=== PATIENT | male | born 1935 | race Caucasian/White ===

== ENCOUNTER 2017-05-03 19:28 | Emergency (ER) | payer OTHER ==
[2017-05-03 19:37] VITALS: BP 161/81; PULSE 89; TEMP 98.6; BMI 20.5
--- NOTE | 2017-05-03 19:38 | PDOC ---
Rapid Medical Evaluation Time Seen by Provider: 05/03/17 19:32 Medical Evaluation: Allergies Allergy/AdvReac Type Severity Reaction Status Date / Time No Known Drug Allergies Allergy Verified 06/27/15 08:43 05/03/17 19:33 I have performed a brief in-person evaluation of this patient. The patient presents with a chief complaint of: penile bleeding s/p "study" by urologist MD Alec Reynolds, "losing a lot of blood," pain with urination Pertinent physical exam findings: hematuria I have ordered the following: UA, UCx The patient will proceed to the ED for further evaluation. Discharge Disposition - Diagnosis Hematuria - Referrals - Patient Instructions - Post Discharge Activity
[2017-05-03 20:01] LABS: PH,URINE 7.5 (5.0-8.0); URINE APPEARANCE CLEAR; URINE BILIRUBIN NEGATIVE (NEGATIVE); URINE BLOOD 3+ (NEGATIVE); URINE COLOR DK. RED; URINE GLUCOSE (UA) NEGATIVE (NEGATIVE); URINE KETONE TRACE (NEGATIVE); URINE LEUK ESTERASE TRACE (NEGATIVE); URINE NITRITE POSITIVE (NEGATIVE); URINE PROTEIN 3+ (NEGATIVE)
[2017-05-03 20:17] LABS: URINE WBC 27 /hpf (3-5)
[2017-05-03 20:23] LABS: BASO % 0.6 % (0-2.0); EOS % 0.4 % (0-4.5); MCH 30.2 pg (25.7-33.7); MCHC 33.8 g/dl (32.0-35.9); MEAN CELL VOLUME 89.1 fl (80-96); MEAN PLT VOLUME 8.6 fl (7.5-11.1); NEUT % 80.4 % (42.8-82.8); PLATELET COUNT 163 K/MM3 (134-434)
--- NOTE | 2017-05-03 20:25 | PDOC ---
History of Present Illness - General Chief Complaint: Hematuria Stated Complaint: PCP SENT Time Seen by Provider: 05/03/17 19:32 History Source: Patient, Family Exam Limitations: Language Barrier (Grandson was translating) - History of Present Illness Initial Comments: 05/03/17 20:18 The patient is a 81M with a PMH of BPH s/p prostatectomy in [place] in 2005 who presents to the ED with complaints of hematuria. The patient's grandson was translating. The patient had a urologic procedure today which involved going inside the urethra. The patient states that he experienced a lot of pain when the physician entered the urethra. Since his procedure, he has had painful urination once (which has become more mild), hematuria, and gross blood from his meatus after finishing urinating. He has no other complaints. Denies lightheadedness, fever, chills, palpitations, CP, SOB. Past History - Past Medical History Allergies/Adverse Reactions: Allergies Allergy/AdvReac Type Severity Reaction Status Date / Time No Known Drug Allergies Allergy Verified 06/27/15 08:43 Home Medications: Ambulatory Orders NK [No Known Home Medication] 05/03/17 COPD: No Diabetes: No - Surgical History Appendectomy: Yes - Suicide/Smoking/Psychosocial Hx Smoking History: Never smoked Have you smoked in the past 12 months: No Hx Alcohol Use: No Drug/Substance Use Hx: No Substance Use Type: None Review of Systems - Review of Systems Able to Perform ROS?: Yes Comments:: 05/03/17 20:43 GENERAL/CONSTITUTIONAL: No fever or chills. No weakness. HEAD, EYES, EARS, NOSE AND THROAT: No change in vision. No ear pain or discharge. No sore throat. GASTROINTESTINAL: No nausea, vomiting, diarrhea, constipation, or abdominal pain. GENITOURINARY: Positive for hematuria. No dysuria, frequency, hematuria, or change in urination. CARDIOVASCULAR: No chest pain, palpitations, or lightheadedness. RESPIRATORY: No cough, wheezing, shortness of breath, or hemoptysis. MUSCULOSKELETAL: No joint or muscle swelling or pain. No neck or back pain. SKIN: No rash or lesions. NEUROLOGIC: No headache, numbness, tingling, weakness, loss of consciousness, or change in strength/sensation. ENDOCRINE: No increased thirst. No abnormal weight change. HEMATOLOGIC/LYMPHATIC: No anemia, easy bleeding, or history of blood clots. ALLERGIC/IMMUNOLOGIC: No hives or skin allergy. Is the patient limited Malaysian proficient: Yes *Physical Exam - Vital Signs Last Vital Signs Temp Pulse Resp BP Pulse Ox 98.6 F 89 18 161/81 100 05/03/17 19:35 05/03/17 19:35 05/03/17 19:35 05/03/17 19:35 05/03/17 19:35 - Physical Exam Comments: 05/03/17 21:16 GENERAL: Well developed, well nourished. Awake and alert. No acute distress. HEENT: Normocephalic, atraumatic. Hearing grossly normal. Moist mucous membranes. NECK: Supple. Full ROM. No JVD. CARDIOVASCULAR: Regular rate and rhythm. No murmurs, rubs, or gallops. Distal pulses are 2+ and symmetric. PULMONARY: No evidence of respiratory distress. Lungs clear to auscultation bilaterally. No wheezing, rales or rhonchi. ABDOMINAL: Soft. Non-tender. Non-distended. No rebound or guarding. No organomegaly. Normoactive bowel sounds. GENITOURINARY: No CVA tenderness bilaterally. There is dry blood at the urethral meatus. No tenderness to palpation over penile shaft. MUSCULOSKELETAL: Normal range of motion at all joints. No bony deformities or tenderness. EXTREMITIES: No cyanosis. No clubbing. No edema. No calf tenderness. SKIN: Warm and dry. Normal capillary refill. No rashes. No jaundice. NEUROLOGICAL: Alert, awake, appropriate. Cranial nerves 2-12 intact. Normal speech. PSYCHIATRIC: Cooperative. Good eye contact. Appropriate mood and affect. ED Treatment Course - LABORATORY CBC & Chemistry Diagram: 05/03/17 20:15 05/03/17 20:15 - ADDITIONAL ORDERS Additional order review: Laboratory Results 05/03/17 19:42 Urine Color Dk. red Urine Appearance Clear Urine pH 7.5 Ur Specific Allison 1.020 Urine Protein 3+ H Urine Glucose (UA) Negative Urine Ketones Trace H Urine Blood 3+ H Urine Nitrite Positive Urine Bilirubin Negative Urine Urobilinogen 1.0 Medical Decision Making - Medical Decision Making 05/03/17 20:39 The patient is a 81M who presents after having a cystoscope with biopsy and is now experiencing hematuria. I spoke with Dr. Alec Reynolds who states that his partner most likely did the procedure and is willing to either see the patient in the hospital if the patient is admitted or have the patient follow up in clinic. Labs pending. Will reassess when labs return. Will give PO hydration. 05/03/17 21:17 All labs WNL, Hgb 14.1. The patient and family agree to see Dr. Reynolds tomorrow at 9 am in clinic. The patient urinated in the ER and states that the hematuria is decreased and there is much less pain. Ready to d/c. *DC/Admit/Observation/Transfer Diagnosis at time of Disposition: Hematuria Qualifiers: Hematuria type: gross Qualified Code(s): R31.0 - Gross hematuria - Discharge Dispostion Disposition: HOME Condition at time of disposition: Stable Admit: No - Referrals Referrals: Evgeny Reynolds MD [Primary Care Provider] - - Patient Instructions Printed Discharge Instructions: DI for Hematuria Additional Instructions: Please return to the ER if symptoms persist, worsen, or new symptoms arise. Please follow up with your primary care physician in 2-3 days. Please return to the ER if you have any signs or symptoms of chest pain, shortness of breath, uncontrollable fever, chills, nausea, vomiting, numbness, tingling, or weakness in any part of your body, changes in vision, or slurred speech. Please take your medications as prescribed. Por favor regrese a la bhumika de emergencias si los sntomas persisten, empeoran o surgen nuevos sntomas. Por favor, darshan un seguimiento con bloom mdico de atencin primaria en 2-3 batista. Por favor regrese a la bhumika de emergencia si tiene signos o sntomas de dolor en el pecho, dificultad para respirar, fiebre incontrolable, escalofros, n useas, vmitos, entumecimiento, hormigueo o debilidad en cualquier parte de bloom cuerpo, cambios en la visin o dificultad para hablar. Por favor tome jefferson medicamentos segn lo recetado. Print Language: PERUVIAN - Post Discharge Activity
[2017-05-03 20:26] LABS: URINE RBC 1227 /hpf (0-3)
[2017-05-03 20:36] LABS: INR 1.15 (0.82-1.09)
[2017-05-03 20:48] LABS: ALBUMIN 4.1 g/dl (3.4-5.0); ANION GAP 8 (8-16); BILIRUBIN,TOTAL 0.7 mg/dL (0.2-1.0); CALCIUM 8.6 mg/dL (8.5-10.1); CO2 24 mmol/L (21-32); CREATININE 0.8 mg/dL (0.7-1.3); GLUCOSE,RANDOM 101 mg/dL (74-106); SGOT/AST 14 U/L (15-37); SGPT/ALT 17 U/L (12-78); TOT PROT 7.5 g/dl (6.4-8.2)
[2017-05-03 20:49] LABS: ALK PHOS 81 U/L (45-117)
[2017-05-03 21:46] LABS: URINE LEUK ESTERASE Negative (NEGATIVE)
--- NOTE | 2017-05-03 21:52 | PDOC ---
Attending Attestation - Resident Resident Name: DrakevandanajonatanGamal - ED Attending Attestation I have performed the following: I have examined & evaluated the patient, The case was reviewed & discussed with the resident, I agree w/resident's findings & plan, Exceptions are as noted - HPI HPI: 05/03/17 21:47 41-year-old male status post urethral and bladder cystoscopy today here today with complaints of hematuria no fever no chills no complaints of back pain. Feels he is not having any difficulty with urination had the procedure done today by a colleague of Dr. Westbrook. No other moderating factors not feeling lightheaded no dizziness no chest pain or shortness of breath - Physicial Exam PE: 05/03/17 21:48 Awake alert no acute distress cardiac and lung exam is unremarkable abdomen is soft and nontender no palpable bladder distention no CVA tenderness extremities are warm well perfused patient's awake alert oriented 3 - Medical Decision Making 05/03/17 21:49 81 yo M s/p cystoscopy with hematuria. Will discuss with him. Discussed with Dr. Westbrook , who says he will see the patient tomorrow a.m. and 9 AM patient is not having any difficulty with urination currently therefore no concerns for urethral obstruction. Plan UA basic labs to r/o anemia. and and reassess likely DC home with close follow-up 05/03/17 21:51 labs unremarkabole will dc home. plan to see bianca in am.
== END 2017-05-03 22:01 | disposition home or self-care (01) ==
LOC: JER 19:28
DX: R31.0 Gross hematuria (principal); Z98.890 Other specified postprocedural states; N40.0 Benign prostatic hyperplasia without lower urinary tract symptoms
CPT/HCPCS: 36415; 80053; 81003; 81015; 85025; 85610; 86850; 86900; 86901; 87086; 99281-25

== ENCOUNTER 2018-04-15 11:20 | Emergency (ER) | payer OTHER ==
[2018-04-15 11:28] VITALS: BP 141/71; PULSE 76; TEMP 97.8; BMI 20.1
--- NOTE | 2018-04-15 11:36 | PDOC ---
History of Present Illness - General Chief Complaint: Lightheaded Stated Complaint: DIZZYNESS 2 DYS Time Seen by Provider: 04/15/18 11:35 - History of Present Illness Initial Comments: 04/15/18 12:16 The patient is an 82 year old male who denies any significant PMH who presents for evaluation of dizziness. The patient reports a 4 day history of room spinning dizziness that is worse with head movement and bending down prompting his presentation to the ED for further evaluation. The patient reports a distant history of vertigo with similar symptoms. He otherwise denies fevers, chills, headache, SOB, chest pain, nausea, vomiting, abdominal pain, numbness, tingling, weakness, or changes with urination or bowel movements. Past History - Past Medical History Allergies/Adverse Reactions: Allergies Allergy/AdvReac Type Severity Reaction Status Date / Time No Known Drug Allergies Allergy Verified 04/15/18 11:28 Home Medications: Ambulatory Orders Meclizine HCl [Antivert -] 25 mg PO TID PRN #21 tablet 04/15/18 COPD: No Diabetes: No - Surgical History Appendectomy: Yes - Suicide/Smoking/Psychosocial Hx Smoking History: Never smoked Have you smoked in the past 12 months: No Hx Alcohol Use: No Drug/Substance Use Hx: No Substance Use Type: None Review of Systems - Review of Systems Comments:: 04/15/18 12:18 Constitutional: No fevers, chills, fatigue, malaise HEENT: No Rhinorrhea, nasal congestion, visual changes Cardiovascular: No chest pain, syncope, palpitations, lightheadedness Respiratory: No Cough, SOB, Hemoptysis, Gastrointestinal: No Abdominal pain, Nausea, Vomiting, Constipation, Diarrhea, Melena Genitourinary: No Dysuria, Frequency, Urgency, Hesitancy, Hematuria, Flank pain Musculoskeletal: No Myalgia, arthralgia Skin: No rashes, itching, bruising, pallor Neurologic: Dizziness. No Headache, Numbness, Weakness, or Tingling Psychiatric: No Hallucinations. No SI or HI *Physical Exam - Vital Signs Last Vital Signs Temp Pulse Resp BP Pulse Ox 97.8 F 76 18 141/71 96 04/15/18 11:25 04/15/18 11:25 04/15/18 11:25 04/15/18 11:25 04/15/18 11:25 - Physical Exam Comments: 04/15/18 12:19 General Appearance: Nourished. No Apparent Distress HEENT: EOMI, BONG. Nystagmus noted on exam. No Pharyngeal Erythema, Tonsillar Exudate, Tonsillar Erythema Neck: No Cervical Lymphadenopathy Respiratory/Chest: Lungs Clear, Normal Breath Sounds. No Crackles, Rales, Rhonchi, Wheezing Cardiovascular: Regular Rhythm, Regular Rate. No Murmur, Gallops, Rubs Gastrointestinal/Abdominal: Normal Bowel Sounds, Soft. No Guarding, Rebound, Tenderness Musculoskeletal: No CVA Tenderness Extremity: Normal Capillary Refill Integumentary: Normal Color, Dry, Warm Neurologic: pipelaying fitter II-XII NML intact, Fully Oriented, Alert, Normal Mood/Affect, Normal Response, Motor Strength 5/5. Normal Finger to Nose and Heel to Cruz, Positive [id number] maneuver Moderate Sedation - Procedure Monitoring Vital Signs: Procedure Monitoring Vital Signs Temperature 97.8 F 04/15/18 11:25 Pulse Rate 76 04/15/18 11:25 Respiratory Rate 18 04/15/18 11:25 Blood Pressure 141/71 04/15/18 11:25 O2 Sat by Pulse Oximetry (%) 96 04/15/18 11:25 Heart Score/ECG Review #1 ECG reviewed & interpreted by me at: 13:33 General ECG Interpretation: Sinus Rhythm, Normal Rate, Normal Intervals, No acute ischemic changes ED Treatment Course - LABORATORY CBC & Chemistry Diagram: 04/15/18 12:25 04/15/18 12:25 Medical Decision Making - Medical Decision Making 04/15/18 12:20 The patient is an 82 year old male who denies any significant PMH who presents for evaluation of dizziness. Differential includes but is not limited to: Vertigo, ACS, Arrhythmia, Intracranial process, Infectious, Metabolic Derangement. Given the patient's history and physical exam, it is likely the patient's symptoms are due to a peripheral vertigo. However, we will obtain a cbc, cmp, troponin, ekg, ua, head CT to evaluate further. We will treat with iv fluids, meclazine and continue to monitor and reassess while here in the ED. 04/15/18 13:29 CBC, cmp, troponin, ekg, ua is unremarkable. Head CT is unremarkable as read by our radiologist. The patient reports some improvement in his symptoms. It is likely his symptoms are due to Vertigo. We discussed the case with the patient's primary care provider Dr. Reynolds who will follow up with the patient in 1-2 days. We are comfortable discharging the patient home with primary care provider and neurology follow up. We discussed the results, plan, and return precautions with the patient who voiced understanding and is agreeable with the plan. *DC/Admit/Observation/Transfer Diagnosis at time of Disposition: Dizziness - Discharge Dispostion Disposition: HOME Condition at time of disposition: Stable - Prescriptions Prescriptions: Meclizine HCl [Antivert -] 25 mg PO TID PRN #21 tablet PRN Reason: Dizziness - Referrals Referrals: Evgeny Reynolds MD [Primary Care Provider] - Claudio Wood MD [Staff Physician] - - Patient Instructions Printed Discharge Instructions: DI for Vertigo Additional Instructions: Please return to the ER if you experience concerning or worsening symptoms including worsening difficulty breathing, weakness, or chest pain, headache, vomiting. Your lab results and head CT were normal here in the ER. We have sent a prescription for dizziness medication to your pharmacy that you should take as directed. Please call to schedule a follow up appointment with your primary care provider and our neurologist Dr. Wood within 1-2 days to discuss your ER visit and further management of your symptoms. Por favor, regrese a la bhumika de emergencias si experimenta problemas o empeoramiento de los sntomas incluyendo empeoramiento de la dificultad respiratoria, debilidad o dolor en el pecho, dolor de natalie, vmitos. Los resultados de tu laboratorio y la tomografa COMPUTARIZAda fueron normales aqu en URGENCIAs. Le hemos enviado shandra prescripcin de medicacin para mareos a bloom farmacia que debe tyler segn lo indicado. Por favor llame para programar shandra eve de seguimiento con bloom proveedor de cuidado primario dentro de los 1-2 batista para discutir bloom visita de URGENCIAs y la administracin de jefferson sntomas. Print Language: KITTITIAN - Post Discharge Activity
[2018-04-15] MEDS ORDERED: SODIUM CHLORIDE 1,000 ML IV STA (12:06)
[2018-04-15] MEDS ORDERED: MECLIZINE HCL 25 MG TABLET (FP) PO ONE (12:06)
[2018-04-15] MEDS ORDERED: MECLIZINE HCL 25 MG TABLET (FP) ONE (12:13)
[2018-04-15 12:34] LABS: HEMATOCRIT 39.9 % (35.4-49); HEMOGLOBIN 14.2 GM/dL (11.7-16.9); LYMPH % 27.2 % (8-40); MCH 31.6 pg (25.7-33.7); MCHC 35.5 g/dl (32.0-35.9); MEAN CELL VOLUME 88.9 fl (80-96); MEAN PLT VOLUME 8.5 fl (7.5-11.1); NEUT % 64.8 % (42.8-82.8); PLATELET COUNT 179 K/MM3 (134-434); RBC 4.49 M/mm3 (4.00-5.60); RDW 13.1 % (11.9-15.9); URINE APPEARANCE CLEAR; URINE BILIRUBIN NEGATIVE (<2.0 mg/dL); URINE COLOR DKYELLOW; URINE GLUCOSE (UA) NEGATIVE (NEGATIVE); URINE KETONE NEGATIVE (NEGATIVE); URINE LEUK ESTERASE NEGATIVE (NEGATIVE); URINE NITRITE NEGATIVE (NEGATIVE); URINE PROTEIN NEGATIVE (NEGATIVE); WHITE BLOOD COUNT 5.8 K/mm3 (4.0-10.0)
[2018-04-15 12:50] LABS: ALK PHOS 76 U/L (45-117); ANION GAP 10 MMOL/L (8-16); BILIRUBIN,TOTAL 0.7 mg/dL (0.2-1); BLOOD UREA NITROGEN 16 mg/dL (7-18); CALCIUM 8.7 mg/dL (8.5-10.1); CHLORIDE 107 mmol/L (98-107); CO2 24 mmol/L (21-32); CREATININE 0.8 mg/dL (0.55-1.3); GLUCOSE,RANDOM 97 mg/dL (74-106); POTASSIUM 4.2 mmol/L (3.5-5.1); SGOT/AST 15 U/L (15-37); SGPT/ALT 17 U/L (13-61); SODIUM 141 mmol/L (136-145); TOT PROT 7.3 g/dl (6.4-8.2)
--- NOTE | 2018-04-15 12:53 | PDOC ---
Attending Attestation - Resident Resident Name: Indio Lozano - ED Attending Attestation I have performed the following: I have examined & evaluated the patient, The case was reviewed & discussed with the resident, I agree w/resident's findings & plan, Exceptions are as noted - HPI HPI: 04/15/18 12:51 82-year-old male no past medical history here today with vertigo like symptoms. Patient states symptoms started 4 days ago does have dizziness and vertigo like sensation worse with movement turning and lying in bed. He states he feels unsteady when bending forward otherwise he has been unaffected no fevers no chills no associated nausea or vomiting has had similar symptoms many years ago no associated weakness changes to his speech headache or other complaints no recent viral URI symptoms no tinnitus - Physicial Exam PE: 04/15/18 12:52 Awake alert no acute distress lungs are clear bilaterally heart is regular no murmurs rubs or gallops abdomen is soft and nontender extremities are warm and well-perfused. Neurological exam patient has 5 out of 5 strength all 4 extremities. Cranial nerves are intact. [id number] is normal negative Romberg's gait is normal he has a positive Nicole-Hallpike to the right. With horizontal nystagmus. Altered any hand movements is normal speech is clear sensation is intact skin is warm and dry - Medical Decision Making 04/15/18 12:53 Differential diagnosis positional vertigo is likely. We'll rule out electrolyte abnormality, dehydration, anemia, perform CT head due to the patient's age will treat with meclizine and IV fluids antiemetics only as needed and reassess
--- NOTE | 2018-04-16 11:18 | EKG ---
Test Reason : Blood Pressure : / mmHG Vent. Rate : 067 BPM Atrial Rate : 067 BPM P-R Int : 122 ms QRS Dur : 072 ms QT Int : 372 ms P-R-T Axes : -09 048 033 degrees QTc Int : 393 ms NORMAL SINUS RHYTHM NORMAL ECG WHEN COMPARED WITH ECG OF 26-DEC-2010 11:19, NO SIGNIFICANT CHANGE WAS FOUND Confirmed by ROSALBA ACEVEDO MD ([id number]) on 04/16/2018 11:17:53 AM Referred By: Confirmed By:ROSALBA ACEVEDO MD
== END 2018-04-15 13:40 | disposition home or self-care (01) ==
LOC: JER 11:20
PROC: 3E0337Z Introduction of Electrolytic and Water Balance Substance into Peripheral Vein, Percutaneous Approach (ICD-10-PCS; principal; 2018-04-15)
DX: R42 Dizziness and giddiness (principal)
CPT/HCPCS: 36415; 70450-TC; 80053; 81003; 82550; 84484; 85025; 93005; 93010; 96360; 99284-25; J7030

== ENCOUNTER 2021-07-01 04:44 | Day surgery (SDC) | payer OTHER ==
[2021-06-30 16:52] VITALS: BMI 19.7
[2021-07-01] MEDS: CIPROFLOXACIN HCL 0.3% OPHTH 2.5ML BOTTLE OP SCH ×2 (06:20→06:30)
[2021-07-01] MEDS: PHENYLEPHRINE 2.5% OPHTH SOLN 15 ML BOTTLE OP SCH ×3 (06:20→06:30)
[2021-07-01] MEDS: TROPICAMIDE 1% OPHTH SOLN 15 ML BOTTLE OP SCH ×3 (06:20→06:30)
[2021-07-01] MEDS: KETOROLAC TROMETHAMINE 0.5% EYE DROP 1 DROP DROPS OP SCH ×3 (06:20→06:30)
[2021-07-01] MEDS ORDERED: PHENYLEPHRINE 2.5% OPTHALMIC DROP BOTTLE ONE (06:24)
[2021-07-01] MEDS ORDERED: CIPROFLOXACIN 0.3% EYE DROPS 5 ML BOTTLE ONE (06:24)
[2021-07-01] MEDS ORDERED: TROPICAMIDE 1% OPHTH SOLN 15 ML BOTTLE ONE (06:24)
[2021-07-01] MEDS ORDERED: KETOROLAC TROMETHAMINE 0.5% EYE DROP 1 DROP DROPS ONE (06:24)
[2021-07-01] MEDS ORDERED: TOBRAMYCIN/DEXAMETHASONE OPHTH. OINTMENT 1 TUBE ONE (07:16)
[2021-07-01] MEDS ORDERED: LIDOCAINE HCL/PF 1% SDV 5ML VIAL ONE (07:16)
[2021-07-01] MEDS ORDERED: TETRACAINE 0.5% OPHTH SOLN 2 ML BOTTLE ONE (07:17)
[2021-07-01] MEDS ORDERED: POVIDONE-IODINE 5% OPHTHALMIC PREP 30 ML SOLUTION ONE (07:17)
[2021-07-01] MEDS ORDERED: ACETAMINOPHEN 325 MG TABLET (FP) PO PRN (07:18)
[2021-07-01] MEDS ORDERED: TRYPAN BLUE 0.5 ML DISP.SYRIN ONE (07:20)
[2021-07-01] MEDS ORDERED: PROPOFOL 20 ML ONE (07:29)
[2021-07-01] MEDS ORDERED: BUPIVACAINE HCL/PF 0.75% 10 ML VIAL ONE (07:30)
[2021-07-01] MEDS ORDERED: LIDOCAINE HCL/PF 2% SDV 5ML VIAL ONE (07:30)
[2021-07-01] MEDS ORDERED: BUPIVACAINE HCL/PF 0.75% 10 ML VIAL NR ONE (07:53)
[2021-07-01] MEDS ORDERED: LIDOCAINE HCL/PF 2% SDV 5ML VIAL INF ONE (07:53)
[2021-07-01] MEDS ORDERED: POVIDONE-IODINE 5% OPHTHALMIC PREP 30 ML SOLUTION OS ONE (07:55)
[2021-07-01] MEDS ORDERED: BSS (NA/CA/MG/K) BALANCED SALT SOLUTION OPHTH SOLN 15 ML BOTTLE OS ONE (08:01)
[2021-07-01] MEDS ORDERED: CHONDROITIN SU A/HYALUR SOD 1 KIT IO ONE ×2 (08:02)
[2021-07-01] MEDS ORDERED: ACETYLCHOLINE 1:100 INTRA-OCUL 20 MG/2 ML KIT ONE (08:07)
[2021-07-01] MEDS ORDERED: PHENYLEPHRINE/KETOROLAC 4 ML VIAL IO ONE (08:13)
[2021-07-01] MEDS ORDERED: EPINEPHrine/PF 1 MG/1 ML (1:1,000) AMPULE SQ ONE (08:29)
[2021-07-01] MEDS ORDERED: TOBRAMYCIN/DEXAMETHASONE OPHTH. OINTMENT 1 TUBE TP ONE (08:35)
[2021-07-01] MEDS ORDERED: EPINEPHrine/PF 1 MG/1 ML (1:1,000) AMPULE ONE (09:09)
[2021-07-01] MEDS ORDERED: ONDANSETRON 4 MG/2 ML VIAL IVPUSH PRN (09:21)
[2021-07-01] MEDS ORDERED: LACTATED RINGERS SOLUTION 1,000 ML IV SCH (09:30)
[2021-07-01 11:08] VITALS: BP 154/66; PULSE 66; TEMP 97.8
== END 2021-07-01 11:09 | disposition home or self-care (01) ==
LOC: JASU-SURG 04:44
PROVIDERS: ATTEND Ophthalmology
PROC: 08RK3JZ Replacement of Left Lens with Synthetic Substitute, Percutaneous Approach (ICD-10-PCS; principal; 2021-07-01 07:30)
DX: H26.9 Unspecified cataract (principal)
CPT/HCPCS: J1097